=== PATIENT | male | born 1970 | race Caucasian/White ===

== ENCOUNTER 2018-01-09 10:59 | Emergency (ER) | payer SELFPAY ==
[~2018-01-09] VITALS: Ht 185.4 cm; Wt 117.9 kg
[~2018-01-09 10:59] MED LIST: CLIN-62 PO; CLIN150C17 PO; HYDR-757 PO; LACT1CAP62 PO; MUPI1OIN5 NS; OMEP-10 PO; PRX20T PO; RT-ALBUINH IH; [UNRECOGNIZED DRUG - REMARK]; [UNRECOGNIZED DRUG - REMARK]
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
--- OUTSIDE RECORDS SUMMARY | 2018-01-09 11:06 | XMS REPORT ---
Author Author ILYA CHENEY Organization [facility] Address [address] [place] [address] Care Team Providers Care Beam Press Operator Name Role Phone SHRAVAN ILYA Unavailable PROBLEMS Type Condition ICD9-CM Code NXI37-BI Code Onset Dates Condition Status SNOMED Code Problem Depression F32.9 Active 81327506 Problem CAD (coronary artery disease) I25.10 Active 51918268 Problem Cervical disc disease M50.90 Active 752216721 Problem Post concussion syndrome F07.81 Active 06844758 Problem Anxiety disorder, unspecified F41.9 Active 479864002 Problem Anxiety F41.9 Active 34785582 Problem History of [place] (myocardial infarction) I25.2 Active 693466876 Problem Drug abuse F19.10 Active 97259428 ALLERGIES No Information SOCIAL HISTORY Never Assessed PLAN OF CARE VITAL SIGNS MEDICATIONS Medication Instructions Dosage Frequency Start Date End Date Duration Status Lexapro 20 mg Orally Once a day 1 tablet 24h Dec, 30 days Active RESULTS No Results PROCEDURES No Known procedures IMMUNIZATIONS No Known Immunizations MEDICAL (GENERAL) HISTORY Type Description Date Medical [...]
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
--- OUTSIDE RECORDS SUMMARY | 2018-01-09 11:06 | XMS REPORT ---
Author JB Butcher Organization [employer] Address Unknown Phone Unavailable Care Team Providers Care Livestock Feeder Name Role Phone JB HUANG CP Unavailable Allergies, Adverse Reactions, Alerts Substance Reaction Event Type Sulfamethoxazole-Trimethoprim Info Not Available Drug Allergy Problems Problem Type Condition Code Onset Dates Condition Status Problem Anxiety disorder, unspecified F41.9 Active Problem Anxiety F41.9 Active Problem Depression F32.9 Active Assessment Foreign body in ear, right, initial encounter T16.1XXA Active Problem Drug abuse F19.10 Active Problem CAD (coronary artery disease) I25.10 Active Medications Medication Code System Code Instructions Start Date End Date Status Dosage Metoprolol Succinate NDC 0 50 by oral route Once a day 1 tablet Lexapro [place] [address]-36 20 mg Orally Once a day January 20, 2016 1 tablet Procedures Procedure Coding System Code Date Office Visit, Est Pt., Level 2 CPT-4 56266 Jul 26, 2016 FOREIGN BODY/EAR CPT-4 16300 Jul 26, 2016 Vital Signs Date/Time: Jul 26, 2016 Cardiac Monitoring Heart Rate 88 bpm Weight 251 lbs Height 73 in BMI 33.11 Index Blood Pressure Diastolic 88 mmHg Blood Pressure Systolic 124 mmHg Results Name Result Date Reference Range Unit Abnormality Flag FOREIGN BODY REMOVAL-EAR Summary Purpose eClinicalWorks Submission
--- OUTSIDE RECORDS SUMMARY | 2018-01-09 11:06 | XMS REPORT ---
Author Author LAUREN MONTELONGO Organization [facility] Address [address] [place] [address] Care Team Providers Care Aix Administrator Name Role Phone LAUREN MONTELONGO Unavailable PROBLEMS Type Condition ICD9-CM Code BIB10-MP Code Onset Dates Condition Status SNOMED Code Problem Depression F32.9 Active 59733636 Problem CAD (coronary artery disease) I25.10 Active 99700870 Problem Cervical disc disease M50.90 Active 978616341 Problem Post concussion syndrome F07.81 Active 27367951 Problem Anxiety disorder, unspecified F41.9 Active 393687892 Problem Anxiety F41.9 Active 66278412 Problem History of [place] (myocardial infarction) I25.2 Active 310451142 Problem Drug abuse F19.10 Active 00377462 ALLERGIES No Information SOCIAL HISTORY Never Assessed [...]
--- OUTSIDE RECORDS SUMMARY | 2018-01-09 11:07 | XMS REPORT ---
Author Author ILYA CHENEY Organization [facility] Address [address] [place] [address] Care Team Providers Care Watch Train Assembler Name Role Phone SHRAVAN ILYA Unavailable PROBLEMS Type Condition ICD9-CM Code KGE04-YD Code Onset Dates Condition Status SNOMED Code Problem Depression F32.9 Active 07518664 Problem CAD (coronary artery disease) I25.10 Active 60777636 Problem Cervical disc disease M50.90 Active 513043039 Problem Post concussion syndrome F07.81 Active 06963064 Problem Anxiety disorder, unspecified F41.9 Active 634386198 Problem Anxiety F41.9 Active 45816726 Problem History of [place] (myocardial infarction) I25.2 Active 136302766 Problem Drug abuse F19.10 Active 75024179 ALLERGIES No Information SOCIAL HISTORY Never Assessed [...]
--- OUTSIDE RECORDS SUMMARY | 2018-01-09 11:07 | XMS REPORT ---
Author Author ILYA CHENEY Organization [facility] Address [address] [place] [address] Care Team Providers Care Alarm Adjuster Name Role Phone ILYA CHENEY Unavailable PROBLEMS Type Condition ICD9-CM Code HMN95-AL Code Onset Dates Condition Status SNOMED Code Problem Depression F32.9 Active 40601111 Problem CAD (coronary artery disease) I25.10 Active 41815085 Problem Cervical disc disease M50.90 Active 530935892 Problem Post concussion syndrome F07.81 Active 42026909 Problem Anxiety disorder, unspecified F41.9 Active 347994830 Problem Anxiety F41.9 Active 73359226 Problem History of [place] (myocardial infarction) I25.2 Active 897349859 Problem Drug abuse F19.10 Active 50749247 ALLERGIES Unknown Allergies SOCIAL HISTORY No smoking Hx information available PLAN OF CARE VITAL SIGNS MEDICATIONS Medication Instructions Dosage Frequency Start Date End Date Duration Status Lexapro 20 mg Orally Once a day 1 tablet 24h Dec, 30 days Active RESULTS No Results PROCEDURES No Known procedures IMMUNIZATIONS No Known Immunizations
--- OUTSIDE RECORDS SUMMARY | 2018-01-09 11:07 | XMS REPORT ---
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
--- OUTSIDE RECORDS SUMMARY | 2018-01-09 11:07 | XMS REPORT ---
Author Author ILYA CHENEY [facility] Address [address] [place] [address] Care Team Providers Care Dye Machine Operator Name Role Phone NEVILLE CHENEYNETTE Unavailable PROBLEMS Type Condition ICD9-CM Code FDF74-XP Code Onset Dates Condition Status SNOMED Code Problem Depression F32.9 Active 19139634 Problem Anxiety disorder, unspecified F41.9 Active 608198686 Problem CAD (coronary artery disease) I25.10 Active 81439649 Assessment CAD (coronary artery disease) I25.10 May, Active 68368402 Problem Anxiety F41.9 Active 12448551 Problem Drug abuse F19.10 Active 79277507 ALLERGIES Substance Reaction Event Type Date Status Sulfamethoxazole-Trimethoprim Unknown Drug Allergy May, Active SOCIAL HISTORY No smoking Hx information available PLAN OF CARE VITAL SIGNS Height 73 in 2016-05-30 Weight 238.4 lbs 2016-05-30 Heart Rate 86 bpm 2016-05-30 Respiratory Rate 20 2016-05-30 BMI 31.45 kg/m2 2016-05-30 Blood pressure systolic 124 mmHg 2016-05-30 Blood pressure diastolic 78 mmHg 2016-05-30 MEDICATIONS Medication Instructions Dosage Frequency Start Date End Date Duration Status Lexapro 20 mg Orally Once a day 1 tablet 24h Dec, Active Metoprolol Succinate 50 by oral route Once a day 1 tablet 24h Active RESULTS No Results PROCEDURES Procedure Date Ordered Related Diagnosis Body Site Office Visit, Est Pt., Level 4 May 30, 2016 IMMUNIZATIONS No Known Immunizations
--- OUTSIDE RECORDS SUMMARY | 2018-01-09 11:07 | XMS REPORT ---
Author Author ILYA CHENEY Organization [facility] Address [address] [place] [address] Care Team Providers Care Graphic User Interface Designer Name Role Phone NEVILLE CHENEYNETTE Unavailable PROBLEMS Type Condition ICD9-CM Code GOH05-FC Code Onset Dates Condition Status SNOMED Code Problem Depression F32.9 Active 09394507 Problem CAD (coronary artery disease) I25.10 Active 44299929 Problem Cervical disc disease M50.90 Active 367416159 Problem Post concussion syndrome F07.81 Active 04807079 Problem Anxiety disorder, unspecified F41.9 Active 426108667 Problem Anxiety F41.9 Active 33135075 Problem History of [place] (myocardial infarction) I25.2 Active 582376721 Problem Drug abuse F19.10 Active 82628800 ALLERGIES Substance Reaction Event Type Date Status Sulfamethoxazole-Trimethoprim Unknown Drug Allergy Oct, Active SOCIAL HISTORY No smoking Hx information available PLAN OF CARE Activity Details Follow Up 3 Months, prn Reason: VITAL SIGNS Height 73 in 2016-10-31 Weight 259.0 lbs 2016-10-31 Temperature 98.0 degrees Fahrenheit 2016-10-31 Heart Rate 76 bpm 2016-10-31 Respiratory Rate 20 2016-10-31 BMI 34.17 kg/m2 2016-10-31 Blood pressure systolic 118 mmHg 2016-10-31 Blood pressure diastolic 70 mmHg 2016-10-31 MEDICATIONS Medication Instructions Dosage Frequency Start Date End Date Duration Status Lexapro 20 mg Orally Once a day 1 tablet 24h Dec, 30 days Active RESULTS No Results PROCEDURES Procedure Date Ordered Related Diagnosis Body Site Office Visit, Est Pt., Level 4 Oct 31, 2016 IMMUNIZATIONS No Known Immunizations
--- OUTSIDE RECORDS SUMMARY | 2018-01-09 11:07 | XMS REPORT ---
Author Author MARTIN GALVAN Organization [facility] Address [address] [place] [address] Care Team Providers Care Machine Farmworker Name Role Phone MARTIN GALVAN Unavailable PROBLEMS Type Condition ICD9-CM Code JIM51-WP Code Onset Dates Condition Status SNOMED Code Problem Depression F32.9 Active 86663518 Problem CAD (coronary artery disease) I25.10 Active 46447540 Problem Cervical disc disease M50.90 Active 703865559 Problem Post concussion syndrome F07.81 Active 82153866 Problem Anxiety disorder, unspecified F41.9 Active 050895434 Problem Anxiety F41.9 Active 95533555 Problem History of [place] (myocardial infarction) I25.2 Active 027881067 Problem Drug abuse F19.10 Active 53859629 ALLERGIES Substance Reaction Event Type Date Status Sulfamethoxazole-Trimethoprim Unknown Drug Allergy Sep, Active SOCIAL HISTORY No smoking Hx information available PLAN OF CARE Activity Details Follow Up prn Reason: VITAL SIGNS Height 73 in 2016-10-24 Weight 256.8 lbs 2016-10-24 Temperature 98.4 degrees Fahrenheit 2016-10-24 Heart Rate 80 bpm 2016-10-24 Respiratory Rate 18 2016-10-24 BMI 33.88 kg/m2 2016-10-24 Blood pressure systolic 126 mmHg 2016-10-24 Blood pressure diastolic 84 mmHg 2016-10-24 MEDICATIONS Medication Instructions Dosage Frequency Start Date End Date Duration Status Lexapro 20 mg Orally Once a day 1 tablet 24h Dec, 30 days Active RESULTS No Results PROCEDURES Procedure Date Ordered Related Diagnosis Body Site Office Visit, Est Pt., Level 3 Oct 24, 2016 IMMUNIZATIONS No Known Immunizations
--- OUTSIDE RECORDS SUMMARY | 2018-01-09 11:07 | XMS REPORT ---
Author Author SUYAPA COTO [facility] eClinicalWorks Address Unknown Phone Unavailable Care Team Providers Care Bed And Breakfast Innkeeper Name Role Phone SUYAPA COTO CP Unavailable Allergies, Adverse Reactions, Alerts Substance Reaction Event Type Sulfamethoxazole-Trimethoprim Info Not Available Drug Allergy Problems Problem Type Condition Code Onset Dates Condition Status Problem Anxiety disorder, unspecified F41.9 Active Problem Anxiety F41.9 Active Problem Depression F32.9 Active Assessment Rash and nonspecific skin eruption R21 Active Problem Drug abuse F19.10 Active Problem CAD (coronary artery disease) I25.10 Active Medications Medication Code System Code Instructions Start Date End Date Status Dosage Triamcinolone Acetonide [facility] [address]-34 0.1 % Externally Twice a day March 30, 2016 1 application to affected area PredniSONE [facility] [address]-46 20 mg Orally twice a day March 30, 2016 April 04, 2016 1 tablet Lexapro [facility] [address]-57 20 mg Orally Once a day January 20, 2016 1 tablet Keflex [facility] [address]-42 500 MG Orally 3 times a day March 30, 2016March 1 capsule Metoprolol Succinate NDC 0 not defined Procedures Procedure Coding System Code Date Office Visit, Est Pt., Level 3 CPT-4 43925 March 30, 2016 Vital Signs Date/Time: March 30, 2016 Cardiac Monitoring Heart Rate 90 bpm Weight 215.6 lbs Height 73 in Blood Pressure Diastolic 68 mmHg Blood Pressure Systolic 122 mmHg Results No Known Results Summary Purpose eClinicalWorks Submission
--- OUTSIDE RECORDS SUMMARY | 2018-01-09 11:08 | XMS REPORT ---
Author ILYA Merino [facility] eClinicalWorks Address Unknown Phone Unavailable Care Team Providers Care Desk Attendant Name Role Phone ILYA CHENEY Unavailable Allergies No Known Allergies Problems Problem Type Condition Code Onset Dates Condition Status Problem Anxiety disorder, unspecified F41.9 Active Problem Anxiety F41.9 Active Problem Depression F32.9 Active Problem Drug abuse F19.10 Active Problem CAD (coronary artery disease) I25.10 Active Medications Medication Code System Code Instructions Start Date End Date Status Dosage Vistaril [facility] [address]-18 50 mg Orally 3 times a day January 20, 2016 1 capsule as needed Lexapro [facility] [address]-83 20 mg Orally Once a day January 20, 2016 1 tablet Results No Known Results Summary Purpose eClinicalWorks Submission
--- OUTSIDE RECORDS SUMMARY | 2018-01-09 11:08 | XMS REPORT ---
Author Author LAUREN MONTELONGO Organization [facility] Address [address] [place] [address] Care Team Providers Care Dispensary Attendant Name Role Phone LAUREN MONTELONGO Unavailable PROBLEMS Type Condition ICD9-CM Code ZVF89-XE Code Onset Dates Condition Status SNOMED Code Problem Depression F32.9 Active 50138405 Problem CAD (coronary artery disease) I25.10 Active 41455222 Problem Cervical disc disease M50.90 Active 189364936 Problem Post concussion syndrome F07.81 Active 44712260 Problem Anxiety disorder, unspecified F41.9 Active 858649251 Problem Anxiety F41.9 Active 95941943 Problem History of OK (myocardial infarction) I25.2 Active 363070118 Problem Drug abuse F19.10 Active [id number] ALLERGIES No Information SOCIAL HISTORY Never Assessed PLAN OF CARE VITAL SIGNS MEDICATIONS Unknown Medications RESULTS Name Result Date Reference Range UA LONG DIP (IN HOUSE) 2016-12-08 Lot # [id number] Exp date 10/24/17 Clarity clear Color yellow Odor no GLU negative SARAH negative KET trace SG 1.025 BLO negative pH 6.5 Protein 2+ URO 0.2 NIT negative PATRICIO negative Lot # Exp date PROCEDURES Procedure Date Ordered Result Body Site URINALYSIS, AUTO, W/O SCOPE December 08, 2016 IMMUNIZATIONS No Known Immunizations MEDICAL (GENERAL) HISTORY [...]
--- OUTSIDE RECORDS SUMMARY | 2018-01-09 11:08 | XMS REPORT | Continuity of Care Document ---
Author Author [facility] Address Unknown Phone Unavailable Allergies Active Description Code Type Severity Reaction Onset Reported/Identified Relationship to Patient Clinical Status Yes SULFAMETHOXAZOLE-TRIMETHOPRIM SULFAMETHOXAZOLE-TRI SEVERE Yes [id number] (SULFA (SULFONAMIDE ANTIBIOTICS)) [id number] (SULFA (SULFONAMIDE ANTIBIOTICS)) Mild N/A 07/17/2009 Yes Sulfa (Sulfonamide Antibiotics) [id number] Drug Allergy Unknown N/A 2014 Medications Medication Packaging Start Date Stop Date Route Dosage Sig FENTANYL AMP INJ 100 MCG/2CC MCG 10/14/2016 ONCE&1334 FAMOTIDINE VIAL INJ 20 MG/2CC (PEPCID VIAL) MG 10/14/2016 10/14/2016 ONCE&1335 HYDROMORPHONE AMP INJ 2 MG/CC (DILAUDID 1CC AMP) MG 10/14/2016 10/14/2016 ONCE&1336 METOCLOPRAMIDE VIAL INJ 10 MG/2CC (REGLAN 2CC VIAL) MG 10/14/2016 10/14/2016 ONCE&1336 LACTATED RINGERS 1000CC IV BAG INJ 0 ml 10/14/2016 10/14/2016 ONCE&1340 CEFAZOLIN VIAL INJ 1 GM (ANCEF) GM 10/14/2016 10/14/2016 ONCE&1430 ONDANSETRON VIAL INJ 4 MG/2CC (ZOFRAN 2CC VIAL) MG 10/14/2016 10/21/2016 PRN Q4H OXYCODONE 5MG/APAP 325MG TAB 0 (PERCOCET-5) TAB 10/14/2016 10/21/2016 PRN Q4H IPRATROPIUM/ALBUTEROL INH SOLN INH 0 (DUO-NEB INH SOLN) MLS 10/14/2016 10/21/2016 PRN QID CEFAZOLIN VIAL INJ 1 GM (ANCEF) GM 10/14/2016 10/21/2016 Q8H&0600,1400,2200 PANTOPRAZOLE TAB 40 MG (PROTONIX) MG 10/15/2016 10/21/2016 Daily&0900 CITALOPRAM TAB 20 MG (CELEXA) MG 10/21/2016 Daily&0900 NICOTINE PATCH PAT 14 MG (NICODERM) MG 10/15/2016 10/21/2016 Daily&0900 HYDROMORPHONE AMP INJ 2 MG/CC (DILAUDID 1CC AMP) MG 10/15/2016 10/15/2016 ONCE&1530 CITALOPRAM TAB 20 MG (CELEXA) MG 10/15/2016 ONCE&0900 Problems Date Dx Coded Attending Type Code Diagnosis Diagnosed By 07/17/2009 GARETH MEEK APRN 016.51 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, BACTERIOLOGICAL OR HISTOLOGICAL EXAMINATION NOT DONE 07/17/2009 GARETH MEEK APRN 788.1 DYSURIA 07/17/2009 MARIE SANTIAGO DO 016.51 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, BACTERIOLOGICAL OR HISTOLOGICAL EXAMINATION NOT DONE 07/17/2009 MARIE SANTIAGO DO 788.1 DYSURIA 07/17/2009 DEMETRICE SHAIKH MD 016.51 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, BACTERIOLOGICAL OR HISTOLOGICAL EXAMINATION NOT DONE 07/17/2009 DEMETRICE SHAIKH MD 788.1 DYSURIA 07/17/2009 GARETH MEEK APRN 016.51 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, BACTERIOLOGICAL OR HISTOLOGICAL EXAMINATION NOT DONE 07/17/2009 GARETH MEEK APRN S 788.1 DYSURIA 12/03/2010 GARETH MEEK APRN S 601.0 ACUTE PROSTATITIS 12/03/2010 GARETH MEEK APRN S 788.63 URINARY URGENCY 12/03/2010 MARIE SANTIAGO DO K 601.0 ACUTE PROSTATITIS 12/03/2010 MARIE SANTIAGO DO 788.63 URINARY URGENCY 12/03/2010 DEMETRICE SHAIKH MD 601.0 ACUTE PROSTATITIS 12/03/2010 DEMETRICE SHAIKH MD 788.63 URINARY URGENCY 12/03/2010 GARETH MEEK APRN S 601.0 ACUTE PROSTATITIS 12/03/2010 FANTASMA EVENTS SPECIALIST, GARETH S 788.63 URINARY URGENCY 03/29/2011 DILIA MEEK APRNA S 783.5 POLYDIPSIA 03/29/2011 MARIE SANTIAGO DO 783.5 POLYDIPSIA 03/29/2011 DEMETRICE SHAIKH MD 783.5 POLYDIPSIA 03/29/2011 GARETH MEEK APRN S 783.5 POLYDIPSIA 02/07/2012 GARETH MEEK APRN S 919.5 INSECT BITE INFECTED 02/07/2012 MARIE SANTIAGO DO K 919.5 INSECT BITE INFECTED 02/07/2012 DEMETRICE SHAIKH MD 919.5 INSECT BITE INFECTED 02/07/2012 GARETH MEEK APRN S 919.5 INSECT BITE INFECTED 04/10/2012 GARETH MEEK APRN S V74.5 STD SCREEN 04/10/2012 MARIE SANTIAGO DO K V74.5 STD SCREEN 04/10/2012 DEMETRICE SHAIKH MD V74.5 STD SCREEN 04/10/2012 GARETH MEEK APRN S V74.5 STD SCREEN 06/26/2013 DILIA MEEK APRNA S 461.0 ACUTE MAXILLARY SINUSITIS 06/26/2013 MARIE SANTIAGO DO K 461.0 ACUTE MAXILLARY SINUSITIS 06/26/2013 DEMETRICE SHAIKH MD 461.0 ACUTE MAXILLARY SINUSITIS 06/26/2013 GARETH MEEK APRN S 461.0 ACUTE MAXILLARY SINUSITIS 08/05/2013 MARIE SANTIAGO DO K 300.00 AN ANXIETY UNSPEC 08/05/2013 DEMETRICE SHAIKH MD 300.00 AN ANXIETY UNSPEC 08/05/2013 GARETH MEEK APRN S 300.00 AN ANXIETY UNSPEC 09/04/2013 DEMETRICE SHAIKH MD 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 09/04/2013 GARETH MEEK APRN 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 09/06/2013 HARRIET EUCEDA APRN Ot 478.19 OTHER DISEASE OF NASAL CAVITY AND SINUSE 09/06/2013 HARRIET EUCEDA APRN Ot 682.3 CELLULITIS OF ARM 09/06/2013 HARRIET EUCEDA APRN Ot V04.81 ND FOR PROPHYLACTIC VACCIN AND INOCULATI 09/06/2013 HARRIET EUCEDA EVENTS SPECIALIST Ot V06.1 [id number], COMBINED [ 01/25/2014 BRI HINES, DANETTE Tiwari Ot 729.81 SWELLING OF LIMB 07/10/2014 HARRIET EUCEDA EVENTS SPECIALIST Ot 723.1 CERVICALGIA 07/10/2014 HARRIET EUCEDA EVENTS SPECIALIST Ot 723.4 BRACHIAL NEURITIS NOS 07/14/2014 FANTASMA EVENTS SPECIALIST, GARETH S 723.1 CERVICALGIA 07/14/2014 FANTASMA ROMERO, GARETH S 729.5 PAIN- ARM 01/22/2015 DEMETRICE SHAIKH MD Ot 305.1 TOBACCO USE DISORDER 01/22/2015 DEMETRICE SHAIKH MD Ot 305.70 AMPHETAMINE ABUSE-UNSPEC 01/22/2015 DEMETRICE SHAIKH MD Ot 426.3 LEFT BB BLOCK NEC 01/22/2015 DEMETRICE SHAIKH MD Ot 780.79 OTH MALAISE FATIGUE 01/22/2015 DEMETRICE SHAIKH MD Ot 966.3 POIS-ANTICONVUL NEC/NOS 01/22/2015 DEMETRICE SHAIKH MD Ot E950.4 SUICIDE-DRUG/MEDICIN NEC 03/05/2015 MAGY SAINI MD Ot 305.1 TOBACCO USE DISORDER 03/05/2015 MAGY SAINI MD Ot 401.9 HYPERTENSION NOS 03/05/2015 MAGY SAINI MD Ot 414.01 CORONARY ATHEROSCLEROSIS OF [place] CORON 03/05/2015 MAGY SAINI MD Ot 426.3 LEFT BB BLOCK NEC 03/05/2015 MAGY SAINI MD Ot 794.30 ABN CARDIOVASC STUDY NOS 03/05/2015 MAGY SAINI MD Ot V58.69 OTH MED,LT,CURRENT USE 09/27/2015 SELINA VANESSA Ot 305.1 09/27/2015 SELINA VANESSA Ot 426.3 09/27/2015 SELINA VANESSA Ot 786.09 09/27/2015 SELINA VANESSA Ot 786.50 09/27/2015 SELINA VANESSA Ot 305.1 09/27/2015 SELINA VANESSA Ot 426.3 09/27/2015 [facility], SELINA K Ot 786.09 09/27/2015 [facility], SELINA K Ot 786.50 09/27/2015 [facility], SELINA K Ot 305.1 09/27/2015 [facility], SELINA K Ot 426.3 09/27/2015 [facility], SELINA K Ot 786.09 09/27/2015 [facility], SELINA K Ot 786.50 09/27/2015 [facility], SELINA K Ot 305.1 09/27/2015 [facility], SELINA K Ot 426.3 09/27/2015 [facility], SELINA K Ot 786.09 09/27/2015 [facility], SELINA K Ot 786.50 09/28/2015 SANTIAGO DO, MARIE K Ot F10.10 09/28/2015 SANTIAGO DO, MARIE K Ot F15.90 09/28/2015 SANTIAGO DO, MARIE K Ot F17.210 09/28/2015 SANTIAGO DO, MARIE K Ot I10 09/28/2015 SANTIAGO DO, MARIE K Ot I25.10 09/28/2015 SANTIAGO DO, MARIE K Ot I44.7 09/28/2015 SANTIAGO DO, MARIE K Ot I49.3 09/28/2015 SANTIAGO DO, MARIE K Ot M62.82 09/28/2015 SANTIAGO DO, MARIE K Ot R07.9 09/28/2015 SANTIAGO DO, MARIE K Ot F10.10 09/28/2015 SANTIAGO DO, MARIE K Ot F15.90 09/28/2015 SANTIAGO DO, MARIE K Ot F17.210 09/28/2015 SANTIAGO DO, MARIE K Ot I10 09/28/2015 SANTIAGO DO, MARIE K Ot I25.10 09/28/2015 SANTIAGO DO, MARIE K Ot I44.7 09/28/2015 SANTIAGO DO, MARIE K Ot I49.3 09/28/2015 SANTIAGO DO, MARIE K Ot M62.82 09/28/2015 SANTIAGO DO, MARIE K Ot R07.9 09/29/2015 SANTIAGO DO, MARIE K Ot F10.10 09/29/2015 SANTIAGO DO, MARIE K Ot F15.90 09/29/2015 SANTIAGO DO, MARIE K Ot F17.210 09/29/2015 SANTIAGO DO, MARIE K Ot I10 09/29/2015 SANTIAGO DO, MARIE K Ot I25.10 09/29/2015 SANTIAGO DO, MARIE K Ot I44.7 09/29/2015 SANTIAGO DO, MARIE K Ot I49.3 09/29/2015 SANTIAGO DO, MARIE K Ot M62.82 09/29/2015 SANTIAGO DO, MARIE K Ot R07.9 09/29/2015 SANTIAGO DO, MARIE K Ot F10.10 09/29/2015 SANTIAGO DO, MARIE K Ot F15.90 09/29/2015 SANTIAGO DO, MARIE K Ot F17.210 09/29/2015 SANTIAGO DO, MARIE K Ot I10 09/29/2015 SANTIAGO DO, MARIE K Ot I25.10 09/29/2015 SANTIAGO DO, MARIE K Ot I44.7 09/29/2015 SANTIAGO DO, MARIE K Ot I49.3 09/29/2015 SANTIAGO DO, MARIE K Ot M62.82 09/29/2015 SANTIAGO DO, MARIE K Ot R07.9 09/29/2015 SANTIAGO DO, MARIE K Ot F10.10 09/29/2015 SANTIAGO DO, MARIE K Ot F10.20 ALCOHOL DEPENDENCE, UNCOMPLICATED 09/29/2015 SANTIAGO DO, MARIE K Ot F12.90 CANNABIS USE, UNSPECIFIED, UNCOMPLICATED 09/29/2015 SANTIAGO DO, MARIE K Ot 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 09/29/2015 SANTIAGO DO, MARIE K Ot F15.90 09/29/2015 SANTIAGO DO, MARIE K Ot F17.210 NICOTINE DEPENDENCE, CIGARETTES, UNCOMPL 09/29/2015 SANTIAGO DO, MARIE K Ot I10 ESSENTIAL (PRIMARY) HYPERTENSION 09/29/2015 SANTIAGO DO, MARIE K Ot I25.10 ATHSCL HEART DISEASE OF [place] CORONARY 09/29/2015 SANTIAGO DO, MARIE K Ot I44.7 LEFT BUNDLE-BRANCH BLOCK, UNSPECIFIED 09/29/2015 SANTIAGO DO, MARIE K Ot I49.3 VENTRICULAR PREMATURE DEPOLARIZATION 09/29/2015 SANTIAGO DO, MARIE K Ot M62.82 RHABDOMYOLYSIS 09/29/2015 SANTIAGO DO, MARIE K Ot R07.9 CHEST PAIN, UNSPECIFIED 09/29/2015 SANTIAGO MARIE HUBBARD Ot Z53.21 PROC/TRTMT NOT CRD OUT D/T PT LV BEF SEE 10/01/2015 CÉSAR HERNÁNDEZ, MAHESH Husain Ot E86.0 DEHYDRATION 10/01/2015 MAHESH LINDSEY MD Ot F12.10 CANNABIS ABUSE, UNCOMPLICATED 10/01/2015 MAHESH LINDSEY MD Ot F15.10 OTHER STIMULANT ABUSE, UNCOMPLICATED 10/01/2015 CÉSAR HERNÁNDEZ, MAHESH Husain Ot F17.210 NICOTINE DEPENDENCE, CIGARETTES, UNCOMPL 10/01/2015 SELINA VANESSA Ot 305.1 10/01/2015 SELINA VANESSA Ot 426.3 10/01/2015 SELINA VANESSA Ot 786.09 10/01/2015 SELINA VANESSA Ot 786.50 10/01/2015 SELINA VANESSA Ot 305.1 10/01/2015 SELINA VANESSA Ot 426.3 10/01/2015 SELINA VANESSA Ot 786.09 10/01/2015 SELINA VANESSA Ot 786.50 06/04/2016 SELINA VANESSA Ot 305.1 TOBACCO USE DISORDER 06/04/2016 SELINA VANESSA Ot 426.3 LEFT BB BLOCK NEC 06/04/2016 SELINA VANESSA Ot 786.09 RESPIRATORY ABNORM NEC 06/04/2016 SELINA VANESSA Ot 786.50 CHEST PAIN NOS 06/04/2016 SELINA VANESSA Ot 305.1 TOBACCO USE DISORDER 06/04/2016 SELINA VANESSA Ot 426.3 LEFT BB BLOCK NEC 06/04/2016 SELINA VANESSA Ot 786.09 RESPIRATORY ABNORM NEC 06/04/2016 SELINA VANESSA Ot 786.50 CHEST PAIN NOS 06/04/2016 SELINA VANESSA Ot 305.1 TOBACCO USE DISORDER 06/04/2016 SELINA VANESSA Ot 426.3 LEFT BB BLOCK NEC 06/04/2016 ESTEPHANIE HINES SELINA K Ot 786.09 RESPIRATORY ABNORM NEC 06/04/2016 ESTEPHANIE HINES SELINA K Ot 786.50 CHEST PAIN NOS 06/04/2016 ESTEPHANIE HINES, SELINA K Ot 305.1 TOBACCO USE DISORDER 06/04/2016 ESTEPHANIE HINES SELINA K Ot 426.3 LEFT BB BLOCK NEC 06/04/2016 ESTEPHANIE HINES SELINA K Ot 786.09 RESPIRATORY ABNORM NEC 06/04/2016 ESTEPHANIE HINES SELINA K Ot 786.50 CHEST PAIN NOS 06/06/2016 COREY HERNÁNDEZ, JE Fuentes Ot F17.210 NICOTINE DEPENDENCE, CIGARETTES, UNCOMPL 06/06/2016 COREY HERNÁNDEZ, JE Fuentes Ot I10 ESSENTIAL (PRIMARY) HYPERTENSION 06/06/2016 COREY HERNÁNDEZ, JE T Ot L03.116 CELLULITIS OF LEFT LOWER LIMB 06/06/2016 COREY HERNÁNDEZ, JE T Ot R06.2 WHEEZING 06/06/2016 COREY HERNÁNDEZ, JE Fuentes Ot R07.89 OTHER CHEST PAIN 06/06/2016 COREY HERNÁNDEZ, JE Fuentes Ot Z79.899 OTHER SENIOR LIVING (CURRENT) DRUG THERAPY 10/15/2016 Drew Lindsay 881.00 OPEN WOUND OF FOREARM, WITHOUT MENTION OF COMPLICATION 10/15/2016 Drew Lindsay S51.811A LACERATION WITHOUT FOREIGN BODY OF RIGHT FOREARM, INITIAL ENCOUNTER 10/15/2016 Drew Lindsay S51.812A LACERATION WITHOUT FOREIGN BODY OF LEFT FOREARM, INIT ENCNTR 10/15/2016 Drew Lindsay 427.9 CARDIAC DYSRHYTHMIA, UNSPECIFIED 10/15/2016 Drew Lindsay 873.42 10/15/2016 Drew Lindsay 924.10 10/15/2016 Drew Lindsay 997.1 CARDIAC COMPLICATIONS, NOT ELSEWHERE CLASSIFIED 10/15/2016 Drew Lindsay I49.9 CARDIAC ARRHYTHMIA, UNSPECIFIED 10/15/2016 Drew Lindsay I97.791 OTH INTRAOP CARDIAC FUNCTIONAL DISTURB DURING OTH SURGERY 10/15/2016 Drew Lindsay S01.81XA LACERATION W/O FOREIGN BODY OF OTH PART OF HEAD, INIT ENCNTR 10/15/2016 Drew Lindsay S80.12XA CONTUSION OF LEFT LOWER LEG, INITIAL ENCOUNTER 10/15/2016 Drew Lindsay V05.9 NEED FOR PROPHYLACTIC VACCINATION AND INOCULATION AGAINST UNSPECIFIED SINGLE DISEASE 10/15/2016 Drew Lindsay Z23 ENCOUNTER FOR IMMUNIZATION 10/19/2016 Manisha Santamaria V58.32 ENCOUNTER FOR REMOVAL OF SUTURES 10/19/2016 Manisha Santamaria Z48.02 ENCOUNTER FOR REMOVAL OF SUTURES 10/22/2016 KAROLINE MONDRAGON V58.32 ENCOUNTER FOR REMOVAL OF SUTURES 10/22/2016 KAROLINE MONDRAGON Z48.02 ENCOUNTER FOR REMOVAL OF SUTURES Procedures Code [place] [address] URINE DRUG SCREEN (IN-HOUSE ) 08/05/2013 94528 XRAY CERVICAL SPINE, 2 OR 3 VIEWS 07/14/2014 65008 MRI SPINE (CERVICAL) W/O CONTRAST 07/14/2014 Results Test Result Range Complete blood count (CBC) with automated white blood cell (WBC) differential - 06/04/16 19:58 Blood leukocytes automated count (number/volume) 9.8 10*3/uL 4.3-11.0 Blood erythrocytes automated count (number/volume) 4.95 10*6/uL 4.35-5.85 Venous blood hemoglobin measurement (mass/volume) 16.2 g/dL 13.3-17.7 Blood hematocrit (volume fraction) 45 % 40-54 Automated erythrocyte mean corpuscular volume 90 [foz_us] 80-99 Automated erythrocyte mean corpuscular hemoglobin (mass per erythrocyte) 33 pg 25-34 Automated erythrocyte mean corpuscular hemoglobin concentration measurement ( mass/volume) 36 g/dL 32-36 Automated erythrocyte distribution width ratio 12.8 % 10.0-14.5 Automated blood platelet count (count/volume) 279 10*3/uL 130-400 Automated blood platelet mean volume measurement 9.7 [foz_us] 7.4-10.4 Automated blood neutrophils/100 leukocytes 56 % 42-75 Automated blood lymphocytes/100 leukocytes 27 % 12-44 Blood monocytes/100 leukocytes 14 % 0-12 Automated blood eosinophils/100 leukocytes 3 % 0-10 Automated blood basophils/100 leukocytes 1 % 0-10 Blood neutrophils automated count (number/volume) 5.4 10*3 1.8-7.8 Blood lymphocytes automated count (number/volume) 2.7 10*3 1.0-4.0 Blood monocytes automated count (number/volume) 1.4 10*3 0.0-1.0 Automated eosinophil count 0.3 10*3/uL 0.0-0.3 Automated blood basophil count (count/volume) 0.1 10*3/uL 0.0-0.1 PT panel in platelet poor plasma by coagulation assay - 06/04/16 19:58 Prothrombin time (PT) in platelet poor plasma by coagulation assay 12.7 s 12.2-14.7 INR in platelet poor plasma or blood by coagulation assay 1.0 0.8-1.4 Activated partial thromboplastin time (aPTT) in platelet poor plasma bycoagulation assay - 06/04/16 19:58 Activated partial thromboplastin time (aPTT) in platelet poor plasma bycoagulation assay 31 s 24-35 Comprehensive metabolic panel - 06/04/16 19:58 Serum or plasma sodium measurement (moles/volume) 141 mmol/L 135-145 Serum or plasma potassium measurement (moles/volume) 4.0 mmol/L 3.6-5.0 Serum or plasma chloride measurement (moles/volume) 105 mmol/L 98-107 Carbon dioxide 23 mmol/L 21-32 Serum or plasma anion gap determination (moles/volume) 13 mmol/L 5-14 Serum or plasma urea nitrogen measurement (mass/volume) 10 mg/dL 7-18 Serum or plasma creatinine measurement (mass/volume) 1.05 mg/dL 0.60-1.30 Serum or plasma urea nitrogen/creatinine mass ratio 10 NRG Serum or plasma creatinine measurement with calculation of estimated glomerular filtration rate > NRG Serum or plasma glucose measurement (mass/volume) 96 mg/dL 70-105 Serum or plasma calcium measurement (mass/volume) 9.7 mg/dL 8.5-10.1 Serum or plasma total bilirubin measurement (mass/volume) 0.3 mg/dL 0.1-1.0 Serum or plasma alkaline phosphatase measurement (enzymatic activity/volume) 71 U/L 40-136 Serum or plasma aspartate aminotransferase measurement (enzymatic activity/ volume) 30 U/L 5-34 Serum or plasma alanine aminotransferase measurement (enzymatic activity/volume ) 28 U/L 0-55 Serum or plasma protein measurement (mass/volume) 7.5 g/dL 6.4-8.2 Serum or plasma albumin measurement (mass/volume) 4.5 g/dL 3.2-4.5 Magnesium - 06/04/16 19:58 Magnesium 2.5 mg/dL 1.8-2.4 Serum or plasma troponin i.cardiac measurement (mass/volume) - 06/04/16 19:58 Serum or plasma troponin i.cardiac measurement (mass/volume) < ng/ mL <0.30 Myoglobin, serum - 06/04/16 19:58 Myoglobin, serum 51.5 ng/mL 10.0-92.0 Serum or plasma C reactive protein measurement (mass/volume) - 06/04/16 19:58 Serum or plasma C reactive protein measurement (mass/volume) 0.40 mg /dL 0.00-0.50 Fibrin D-dimer FEU measurement in platelet poor plasma (mass/volume) - 19:58 Fibrin D-dimer FEU measurement in platelet poor plasma (mass/volume) 0.35 ug/mL 0.00-0.49 Comprehensive Metabolic Panel - 10/14/16 12:39 Albumin 4.6 g/dL 3.6-5.1 ALP 50 U/L 35-130 ALT 46 U/L 6-45 Anion Gap 16 6-14 AST 38 U/L 2-40 BUN 9 mg/dL 5-25 Calcium 9.5 mg/dL 8.3-10.4 Chloride 107 mmol/L 95-114 CO2 22 mEq/L 22-33 Creat 0.98 mg/dL 0.50-1.50 eGFR 82 mL/min/1.73m2 >59 Globulin 3.6 g/dL 2.3-3.5 Glucose 122 mg/dL 70-110 Osmo 291 280-295 Potassium 3.6 mmol/L 3.5-5.3 Sodium 141 mmol/L 134-148 TBil 0.5 mg/dL 0.2-1.2 TP 8.2 g/dL 6.0-8.3 EKG - 10/14/16 13:43 EKG Complete Cardiac Panel - 10/14/16 15:24 CK 267 U/L 26-174 CK-MB 2.6 ng/ml 0.0-9.2 Myoglobin 97.4 ng/ml 1.6-154.9 Troponin <0.020 ng/mL 0.0-0.4 Cardiac Panel - 10/14/16 18:30 CK 296 U/L 26-174 CK-MB 3.1 ng/ml 0.0-9.2 Myoglobin 94.9 ng/ml 1.6-154.9 Troponin <0.020 ng/mL 0.0-0.4 Cardiac Panel - 10/14/16 21:30 CK 307 U/L 26-174 CK-MB 3.3 ng/ml 0.0-9.2 Myoglobin 86.5 ng/ml 1.6-154.9 Troponin <0.020 ng/mL 0.0-0.4 Cardiac Panel - 10/15/16 03:30 CK 317 U/L 26-174 CK-MB 2.5 ng/ml 0.0-9.2 Myoglobin 70.9 ng/ml 1.6-154.9 Troponin <0.020 ng/mL 0.0-0.4 CBC With Differential/Platelet - 10/17/16 11:45 WBC 8.0 x10E3/uL 3.4-10.8 RBC 5.17 x10E6/uL 4.14-5.80 Hemoglobin 16.5 g/dL 12.6-17.7 Hematocrit 46.3 % 37.5-51.0 MCV 90 fL 79-97 MCH 31.9 pg 26.6-33.0 MCHC 35.6 g/dL 31.5-35.7 RDW 13.4 % 12.3-15.4 Platelets 293 x10E3/uL 150-379 Neutrophils 58 % Lymphs 26 % Monocytes 11 % Eos 3 % Basos 1 % Neutrophils (Absolute) 4.8 x10E3/uL 1.4-7.0 Lymphs (Absolute) 2.0 x10E3/uL 0.7-3.1 Monocytes(Absolute) 0.8 x10E3/uL 0.1-0.9 Eos (Absolute) 0.2 x10E3/uL 0.0-0.4 Baso (Absolute) 0.1 x10E3/uL 0.0-0.2 Immature Granulocytes 1 % Immature Grans (Abs) 0.1 x10E3/uL 0.0-0.1 Comp. Metabolic Panel (14) - 10/17/16 11:45 Glucose, Serum 116 mg/dL 65-99 BUN 8 mg/dL 6-24 Creatinine, Serum 0.79 mg/dL 0.76-1.27 eGFR If NonAfricn Am 107 mL/min/1.73 >59 eGFR If Africn Am 124 mL/min/1.73 >59 BUN/Creatinine Ratio 10 9-20 Sodium, Serum 143 mmol/L 134-144 Potassium, Serum 4.6 mmol/L 3.5-5.2 Chloride, Serum 98 mmol/L 96-106 Carbon Dioxide, Total 27 mmol/L 18-29 Calcium, Serum 9.8 mg/dL 8.7-10.2 Protein, Total, Serum 7.3 g/dL 6.0-8.5 Albumin, Serum 4.7 g/dL 3.5-5.5 Globulin, Total 2.6 g/dL 1.5-4.5 A/G Ratio 1.8 1.1-2.5 Bilirubin, Total 0.4 mg/dL 0.0-1.2 Alkaline Phosphatase, S 79 IU/L 39-117 AST (SGOT) 31 IU/L 0-40 ALT (SGPT) 36 IU/L 0-44 Lipid Panel - 10/17/16 11:45 Cholesterol, Total 166 mg/dL 100-199 Triglycerides 226 mg/dL 0-149 HDL Cholesterol 45 mg/dL >39 VLDL Cholesterol Griffin 45 mg/dL 5-40 LDL Cholesterol Calc 76 mg/dL 0-99 Hemoglobin A1c - 10/17/16 11:45 Hemoglobin A1c 5.5 % 4.8-5.6 Thyroid [place] Profile - 10/17/16 11:45 TSH 0.539 uIU/mL 0.450-4.500 Encounters ACCT No. Visit Date/Time Discharge Status Pt. Type Provider Facility Loc./Unit Complaint [id number] 07/14/2014 15:03:00 07/14/2014 23:59:59 CLS Outpatient GARETH MEEK APRN [id number] 09/04/2013 15:43:00 09/04/2013 23:59:59 CLS Outpatient NEEL HERNÁNDEZ, DEMETRICE [id number] 08/05/2013 10:08:00 08/05/2013 23:59:59 CLS Outpatient MARIE SANTIAGO DO [id number] 06/26/2013 10:47:00 06/26/2013 23:59:59 CLS Outpatient GARETH MEEK APRN [id number] 10/22/2016 12:18:00 10/22/2016 12:33:00 DIS Outpatient VAMSIEVANKAROLINE SIMEON [id number] 10/19/2016 12:39:00 10/19/2016 12:59:00 DIS Outpatient Manisha Santamaria [id number] 10/14/2016 12:24:00 10/15/2016 16:00:00 [id number] 10/14/2016 13:34:36 Document Registration [id number] 12/31/2017 14:20:00 12/31/2017 23:59:59 CLS Outpatient ILYA [facility]ENE[facility] [id number] 06/04/2016 19:48:00 06/04/2016 22:19:00 DIS Outpatient COREY HERNÁNDEZ, JE Fuentes [facility] ER CHEST PAIN [id number] 10/01/2015 17:06:00 10/01/2015 19:21:00 DIS Emergency CÉSAR HERNÁNDEZ, MAHESH Husain [facility] ER CONFUSION,DROWSINESS [id number] 09/26/2015 23:28:00 09/29/2015 10:36:00 DIS Inpatient MARIE SANTIAGO DO [facility] 4TH [id number] 07/05/2015 14:37:00 07/05/2015 23:59:59 CLS Outpatient TIN CHAVEZ [facility] QUICK [id number] 03/05/2015 09:59:00 03/05/2015 17:55:00 DIS Outpatient PARVEEN HERNÁNDEZ, MAGY Moreno [facility] CATH ABNORMAL STRESS, CP,SOB, LBBB,TOBACCOISM [id number] 03/03/2015 08:42:00 03/03/2015 23:59:59 CLS Outpatient SELINA VANESSA [facility] CARD CHEST PAIN DYSPNEA LBBB [id number] 02/24/2015 12:29:00 02/24/2015 23:59:59 CLS Outpatient SELINA VANESSA [facility] CARD LBBB,CP, DYSPNEA [id number] 01/22/2015 00:02:00 01/22/2015 12:00:00 DIS Inpatient NEEL HERNÁNDEZ, DEMETRICE Jones [facility] ICU DRUG OD;SUICIDAL IDEATION /ATTEMPT [id number] 07/10/2014 17:34:00 07/10/2014 18:16:00 DIS Emergency HARRIET EUCEDA APRN [facility] ER NECK PAIN ARM PAIN [id number] 01/25/2014 17:14:00 01/25/2014 20:10:00 DIS Emergency DANETTE RUIZ [facility] ER FINGER INFECTION [id number] 09/06/2013 09:10:00 09/06/2013 11:05:00 DIS Emergency HARRIET EUCEDA APRN [facility] ER [id number] 10/18/2016 18:06:00 Document Registration [id number] 07/05/2015 15:24:10 ACT Document Registration
--- OUTSIDE RECORDS SUMMARY | 2018-01-09 11:08 | XMS REPORT ---
Author Author ILYA CHENEY Organization [facility] Address [address] [place] [address] Care Team Providers Care Duct Cleaner Name Role Phone NEVILLE CHENEYNETTE Unavailable PROBLEMS Type Condition ICD9-CM Code LTG26-IP Code Onset Dates Condition Status SNOMED Code Problem Depression F32.9 Active 37765399 Problem CAD (coronary artery disease) I25.10 Active 20346307 Problem Cervical disc disease M50.90 Active 882975484 Problem Post concussion syndrome F07.81 Active 26358750 Problem Anxiety disorder, unspecified F41.9 Active 995839897 Problem Anxiety F41.9 Active 73907588 Problem History of SC (myocardial infarction) I25.2 Active 999537514 Problem Drug abuse F19.10 Active 33617902 ALLERGIES Substance Reaction Event Type Date Status Sulfamethoxazole-Trimethoprim Unknown Drug Allergy Feb, Active SOCIAL HISTORY Never Assessed PLAN OF CARE Activity Details Follow Up 4 Weeks Reason:smoking cessation VITAL SIGNS Height 73 in 2017-02-26 Weight 250.1 lbs 2017-02-26 Temperature 98.6 degrees Fahrenheit 2017-02-26 Heart Rate 80 bpm 2017-02-26 Respiratory Rate 18 2017-02-26 BMI 32.99 kg/m2 2017-02-26 Blood pressure systolic 130 mmHg 2017-02-26 Blood pressure diastolic 72 mmHg 2017-02-26 MEDICATIONS Medication Instructions Dosage Frequency Start Date End Date Duration Status Chantix Starting Month Jayesh 1 bed Orally Once a day one daily for 11 days then bid 24h Feb, Active Lexapro 20 mg Orally Once a day 1 tablet 24h Dec, 30 days Active Simvastatin 40 mg Orally Once a day 1 tablet in the evening 24h Dec, 90 days Active RESULTS No Results PROCEDURES No [...]
--- OUTSIDE RECORDS SUMMARY | 2018-01-09 11:08 | XMS REPORT ---
Author Author LAUREN MONTELONGO [facility] Address [address] [place] [address] Care Team Providers Care Associate Professor Of History Name Role Phone LAUREN MONTELONGO Unavailable PROBLEMS Type Condition ICD9-CM Code SXM30-AC Code Onset Dates Condition Status SNOMED Code Problem Depression F32.9 Active 40759592 Problem CAD (coronary artery disease) I25.10 Active 44118961 Problem Cervical disc disease M50.90 Active 443925178 Problem Post concussion syndrome F07.81 Active 79226453 Problem Anxiety disorder, unspecified F41.9 Active 544841848 Problem Anxiety F41.9 Active 97386170 Problem History of AK (myocardial infarction) I25.2 Active 210244922 Problem Drug abuse F19.10 Active 90147557 ALLERGIES Substance Reaction Event Type Date Status Sulfamethoxazole-Trimethoprim Unknown Drug Allergy Sep, Active SOCIAL HISTORY Never Assessed PLAN OF CARE Activity Details Follow Up prn with PCP Alvin Reason: VITAL SIGNS Height 73 in 2016-10-17 Weight 250.0 lbs 2016-10-17 Temperature 98.7 degrees Fahrenheit 2016-10-17 Heart Rate 82 bpm 2016-10-17 Respiratory Rate 22 2016-10-17 BMI 32.98 kg/m2 2016-10-17 Blood pressure systolic 120 mmHg 2016-10-17 Blood pressure diastolic 80 mmHg 2016-10-17 MEDICATIONS Medication Instructions Dosage Frequency Start Date End Date Duration Status Lexapro 20 mg Orally Once a day 1 tablet 24h Dec, Active RESULTS Name Result Date Reference Range THYROID ANALYZER 2016-10-17 TSH 0.539 0.450-4.500 A1C 2016-10-17 Hemoglobin A1c 5.5 4.8-5.6 CBC 2016-10-17 WBC 8.0 3.4-10.8 RBC 5.17 4.14-5.80 Hemoglobin 16.5 12.6-17.7 Hematocrit 46.3 37.5-51.0 MCV 90 79-97 MCH 31.9 26.6-33.0 MCHC 35.6 31.5-35.7 RDW 13.4 12.3-15.4 Platelets 293 150-379 Neutrophils 58 Lymphs 26 Monocytes 11 Eos 3 Basos 1 Neutrophils (Absolute) 4.8 1.4-7.0 Lymphs (Absolute) 2.0 0.7-3.1 Monocytes(Absolute) 0.8 0.1-0.9 Eos (Absolute) 0.2 0.0-0.4 Baso (Absolute) 0.1 0.0-0.2 Immature Granulocytes 1 Immature Grans (Abs) 0.1 0.0-0.1 LIPID PANEL 2016-10-17 Cholesterol, Total 166 100-199 Triglycerides 226 0-149 HDL Cholesterol 45 >39 VLDL Cholesterol Griffin 45 5-40 LDL Cholesterol Calc 76 0-99 CMP 2016-10-17 Glucose, Serum 116 65-99 BUN 8 6-24 Creatinine, Serum 0.79 0.76-1.27 eGFR If NonAfricn Am 107 >59 eGFR If Africn Am 124 >59 BUN/Creatinine Ratio 10 9-20 Sodium, Serum 143 134-144 Potassium, Serum 4.6 3.5-5.2 Chloride, Serum 98 96-106 Carbon Dioxide, Total 27 18-29 Calcium, Serum 9.8 8.7-10.2 Protein, Total, Serum 7.3 6.0-8.5 Albumin, Serum 4.7 3.5-5.5 Globulin, Total 2.6 1.5-4.5 A/G Ratio 1.8 1.1-2.5 Bilirubin, Total 0.4 0.0-1.2 Alkaline Phosphatase, S 79 39-117 AST (SGOT) 31 0-40 ALT (SGPT) 36 0-44 PROCEDURES Procedure Date Ordered Result Body Site EKG, TRACING (IN-HOUSE) 2016-10-17 Normal VENIPUNCT, ROUTINE* Oct 17, 2016 ASSAY THYROID STIM HORMONE Oct 17, 2016 ELECTROCARDIOGRAM, TRACING Oct 17, 2016 COMPLETE CBC W/AUTO DIFF WBC Oct 17, 2016 COMPREHEN METABOLIC PANEL Oct 17, 2016 LIPID PANEL Oct 17, 2016 GLYCATED HEMOGLOBIN TEST Oct 17, 2016 IMMUNIZATIONS No Known Immunizations MEDICAL (GENERAL) [...]
--- NOTE | 2018-01-09 11:10 | ED Headache ---
General Stated Complaint: BLURRY,DOUBLE VISION,MENARD Source: patient Exam Limitations: no limitations History of Present Illness Date Seen by Provider: Jan 09, 2018 Time Seen by Provider: 11:09 Initial Comments To ER with reports of a one-week history frontal headache both sides. He's had blurred vision for 2 days. He's also been very shaky. He denies feeling anxious. No nausea vomiting. No fevers or chills. No history of this or headaches. Otherwise believes his healthy. Severity/Quality: moderate Location: frontal Prior Headaches/Recent Trauma: occasional headaches Associated Symptoms: No confusion, No fatigue, No facial pain, No fever/chills , No flushing, No loss of consciousness, No nausea/vomiting, No nasal congestion , No nasal drainage, No numbness in legs/feet, No rash Allergies and Home Medications Allergies Coded Allergies: Sulfa (Sulfonamide Antibiotics) (Unverified Allergy, Unknown, 03/03/15) Patient Home Medication List Home Medication List Reviewed: Yes Review of Systems Constitutional: see HPI Eyes: See HPI, Blurred Vision Ears, Nose, Mouth, Throat: no symptoms reported Respiratory: no symptoms reported Cardiovascular: no symptoms reported Genitourinary: no symptoms reported Musculoskeletal: no symptoms reported Skin: no symptoms reported Psychiatric/Neurological: No Symptoms Reported Past Itclnep-Ybgabb-Mxcvwi Hx Patient Social History Type Used: Cigarettes Recent Foreign Travel: No Contact w/Someone Who Travel: No Recent Hopitalizations: No Immunizations Up To Date Tetanus Booster (TDap): Less than 5yrs Date of Influenza Vaccine: Jun 24, 2013 Seasonal Allergies Seasonal Allergies: No Past Medical History Appendectomy, Orthopedic Coronary Artery Disease, Hypertension Reproductive Disorders: No Kidney Stones Gastroesophageal Reflux Anxiety, Suicide Attempts, Depression Family Medical History Diabetes mellitus 19 FATHER 19 MOTHER FH: lung cancer 19 MOTHER Hypertension 19 FATHER 19 MOTHER Myocardial infarction 19 FATHER No Family History of: Completed stroke Seizure disorder Heart Disease, Diabetes Physical Exam Vital Signs Vital Signs - First Documented 01/09/18 11:00 Temp 98.0 Pulse 77 Resp 18 B/P (MAP) 143/93 (110) Pulse Ox 98 O2 Delivery Room Air Capillary Refill : General Appearance: WD/WN, no apparent distress HEENT: PERRL/EOMI, normal ENT inspection Neck: non-tender, full range of motion Respiratory: no respiratory distress, no accessory muscle use Gastrointestinal: normal bowel sounds, non tender Extremities: normal range of motion, non-tender Psychiatric: alert, oriented x 3 Crainal Nerves: normal hearing, normal speech, PERRL Motor/Sensory: other (tremors bilateral upper extremities. ) Skin: normal color, warm/dry Progress/Results/Core Measures Lab Results Laboratory Tests Test 01/09/18 11:16 01/09/18 11:50 Range/Units White Blood Count 7.9 4.3-11.0 10^3/uL Red Blood Count 4.93 4.35-5.85 10^6/uL Hemoglobin 15.9 13.3-17.7 G/DL Hematocrit 44 40-54 % Mean Corpuscular Volume 89 80-99 FL Mean Corpuscular Hemoglobin 32 25-34 PG Mean Corpuscular Hemoglobin Concent 36 32-36 G/DL Red Cell Distribution Width 13.1 10.0-14.5 % Platelet Count 344 130-400 10^3/uL Mean Platelet Volume 9.3 7.4-10.4 FL Neutrophils (%) (Auto) 61 42-75 % Lymphocytes (%) (Auto) 22 12-44 % Monocytes (%) (Auto) 13 H 0-12 % Eosinophils (%) (Auto) 3 0-10 % Basophils (%) (Auto) 1 0-10 % Neutrophils # (Auto) 4.8 1.8-7.8 X 10^3 Lymphocytes # (Auto) 1.8 1.0-4.0 X 10^3 Monocytes # (Auto) 1.1 H 0.0-1.0 X 10^3 Eosinophils # (Auto) 0.2 0.0-0.3 10^3/uL Basophils # (Auto) 0.1 0.0-0.1 10^3/uL Erythrocyte Sedimentation Rate 7 0-15 MM/HR Sodium Level 140 135-145 MMOL/L Potassium Level 4.2 3.6-5.0 MMOL/L Chloride Level 106 98-107 MMOL/L Carbon Dioxide Level 24 21-32 MMOL/L Anion Gap 10 5-14 MMOL/L Blood Urea Nitrogen 11 7-18 MG/DL Creatinine 0.91 0.60-1.30 MG/DL Estimat Glomerular Filtration Rate > 60 BUN/Creatinine Ratio 12 Glucose Level 118 H 70-105 MG/DL Calcium Level 9.8 8.5-10.1 MG/DL Total Bilirubin 0.6 0.1-1.0 MG/DL Aspartate Amino Transf (AST/SGOT) 36 H 5-34 U/L Alanine Aminotransferase (ALT/SGPT) 46 0-55 U/L Alkaline Phosphatase 79 40-136 U/L Total Protein 7.9 6.4-8.2 GM/DL Albumin 4.6 H 3.2-4.5 GM/DL Thyroid Stimulating Hormone (TSH) 0.56 0.35-4.94 UIU/ML Free Thyroxine 1.11 0.70-1.48 NG/DL Serum Alcohol < 10 <10 MG/DL Urine Color YELLOW Urine Clarity CLEAR Urine pH 8 5-9 Urine Specific [place] 1.010 L 1.016-1.022 Urine Protein 1+ H NEGATIVE Urine Glucose (UA) NEGATIVE NEGATIVE Urine Ketones 1+ H NEGATIVE Urine Nitrite NEGATIVE NEGATIVE Urine Bilirubin NEGATIVE NEGATIVE Urine Urobilinogen 1 NORMAL MG/DL Urine Leukocyte Esterase 1+ H NEGATIVE Urine RBC (Auto) NEGATIVE NEGATIVE Urine RBC NONE /HPF Urine WBC RARE /HPF Urine Squamous Epithelial Cells 2-5 /HPF Urine Crystals NONE /LPF Urine Bacteria NEGATIVE /HPF Urine Casts NONE /LPF Urine Mucus NEGATIVE /LPF Urine Culture Indicated NO Urine Opiates Screen NEGATIVE NEGATIVE Urine Oxycodone Screen NEGATIVE NEGATIVE Urine Methadone Screen NEGATIVE NEGATIVE Urine Propoxyphene Screen NEGATIVE NEGATIVE Urine Barbiturates Screen NEGATIVE NEGATIVE Ur Tricyclic Antidepressants Screen NEGATIVE NEGATIVE Urine Phencyclidine Screen NEGATIVE NEGATIVE Urine Amphetamines Screen NEGATIVE NEGATIVE Urine Methamphetamines Screen NEGATIVE NEGATIVE Urine Benzodiazepines Screen NEGATIVE NEGATIVE Urine Cocaine Screen NEGATIVE NEGATIVE Urine Cannabinoids Screen POSITIVE H NEGATIVE My Orders Orders - HARRIET EUCEDA APRN Cbc With Automated Diff (01/09/18 11:07) Erythrocyte Sedimentation Rate (01/09/18 11:07) Comprehensive Metabolic Panel (01/09/18 11:07) Ua Culture If Indicated (01/09/18 11:07) Saline Lock/Iv-Start (01/09/18 11:07) Drug Screen Stat (Urine) (01/09/18 11:07) Ct Head Wo (01/09/18 11:07) Thyroid Stimulating Hormone (01/09/18 11:07) Free T4 (Free Thyroxine) (01/09/18 11:07) Ns Iv 1000 Ml (Sodium Chloride 0.9%) (01/09/18 11:15) Ketorolac Injection (Toradol Injection) (01/09/18 11:15) Alcohol (01/09/18 11:11) Lorazepam Injection (Ativan Injection) (01/09/18 11:15) Fentanyl Injection (Sublimaze Injection (01/09/18 12:00) Butalbital/Apap/Caffeine Tab (Fioricet T (01/09/18 12:30) Medications Given in ED Current Medications Medications Dose Ordered Sig/Junaid Route Start Time Stop Time Status Last Admin Dose Admin Acetaminophen/ Butalbital/ Caffeine 1 tab ONCE PRN PO 01/09/18 12:30 01/09/18 12:29 1 TAB Fentanyl Citrate 50 mcg ONCE ONCE IVP 01/09/18 12:00 01/09/18 12:01 DC 01/09/18 12:07 50 MCG Ketorolac Tromethamine 15 mg ONCE ONCE IVP 01/09/18 11:15 01/09/18 11:16 DC 01/09/18 11:21 15 MG Lorazepam 1 mg ONCE ONCE IVP 01/09/18 11:15 01/09/18 11:16 DC 01/09/18 11:21 1 MG Vital Signs/I&O 01/09/18 11:00 Temp 98.0 Pulse 77 Resp 18 B/P (MAP) 143/93 (110) Pulse Ox 98 O2 Delivery Room Air Diagonstic Imaging: CT Comments NAME: DAVION REECE [facility] REC#: [id number] PT STATUS: REG ER : 1970 PHYSICIAN: HARRIET EUCEDA APRN ADMIT DATE: 01/09/18/ER Draft Date of Exam:01/09/18 CT HEAD WO PROCEDURE: CT head without contrast. TECHNIQUE: Multiple contiguous axial images were obtained through the brain without the use of intravenous contrast. INDICATION: Visual disturbances. COMPARISON: CT head without contrast 10/01/2015. FINDINGS: No CT evidence of acute infarction. No intracranial hemorrhage, mass effect, hydrocephalus or extra-axial fluid collections. The visualized paranasal sinuses and mastoids are clear. No acute osseous findings. IMPRESSION: Negative head CT. Dictated on workstation # [id number] Dict: 01/09/18 1142 Trans: 01/09/18 1145 [id number] Interpreted by: ROB JAIME MD Electronically signed by: Departure Communication (Admissions) 1219-patient states that his headache is minimally improved after the Toradol fentanyl and Ativan. His shakiness has improved quite a bit. He does report some dizziness for the past couple days as well but the dizziness is only with movement. There is no horizontal nystagmus with Viridiana hallpike maneuver, however , states "it gets worse when I sit back up". 1323- after one Fioricet given about 45 minutes ago, he states that his headache is now gone and his vision is back to normal. Impression Primary Impression: Headache Additional Impression: Blurred vision Disposition: HOME, SELF-CARE Condition: Stable Departure-Patient Inst. Decision time for Depature: 12:22 Referrals: [facility] (PCP) Primary Care Physician JB HUANG (Family) Primary Care Physician DULCE WYNNE OD Patient Instructions: Headache, Adult (DC) Add. Discharge Instructions: 1. Call Dr Wynne (eye doctor) today for an appointment to be seen for further evaulation of your blurred vision. 2. REturn to ER for any concerns 3. Scripts Butalbital/Aspirin/Caffeine (Fiorinal 50-325-40 mg Capsule) 1 Each Capsule 1 EACH PO Q4H PRN for HEADACHE, #10 CAP Prov: HARRIET EUCEDA APRN 01/09/18 HARRIET EUCEDA APRN Jan 09, 2018 11:10
[2018-01-09] MEDS ORDERED: LORazepam INJ 2 MG/ML (ATIVAN) VIAL IVP ONE (11:15)
[2018-01-09] MEDS ORDERED: NS IV 1000 ML 1,000 ML IV SCH (11:15)
[2018-01-09] MEDS ORDERED: KETOROLAC 30 MG/ML VIAL IVP ONE (11:15)
[2018-01-09 11:24] LABS: BASOPHILS # (AUTO) 0.1 10^3/uL (0.0-0.1); BASOPHILS % (AUTO) 1 % (0-10); EOSINOPHILS # (AUTO) 0.2 10^3/uL (0.0-0.3); EOSINOPHILS % (AUTO) 3 % (0-10); HEMATOCRIT 44 % (40-54); HEMOGLOBIN 15.9 G/DL (13.3-17.7); LYMPHOCYTES # (AUTO) 1.8 X 10^3 (1.0-4.0); LYMPHOCYTES % (AUTO) 22 % (12-44); MEAN CORPUSCULAR HEMOGLOBIN 32 PG (25-34); MEAN CORPUSCULAR HGB CONC 36 G/DL (32-36); MEAN CORPUSCULAR VOLUME 89 FL (80-99); MEAN PLATELET VOLUME 9.3 FL (7.4-10.4); MONOCYTES # (AUTO) 1.1 X 10^3 (0.0-1.0); MONOCYTES % (AUTO) 13 % (0-12); NEUTROPHILS # (AUTO) 4.8 X 10^3 (1.8-7.8); NEUTROPHILS % (AUTO) 61 % (42-75); PLATELET COUNT 344 10^3/uL (130-400); RED BLOOD COUNT 4.93 10^6/uL (4.35-5.85); RED CELL DISTRIBUTION WIDTH 13.1 % (10.0-14.5); WHITE BLOOD COUNT 7.9 10^3/uL (4.3-11.0)
[2018-01-09 11:44] LABS: ALANINE AMINOTRANSFERASE 46 U/L (0-55); ALBUMIN 4.6 GM/DL (3.2-4.5); ALKALINE PHOSPHATASE 79 U/L (40-136); BILIRUBIN,TOTAL 0.6 MG/DL (0.1-1.0); BUN/CREATININE RATIO 12; CALCIUM 9.8 MG/DL (8.5-10.1); CARBON DIOXIDE 24 MMOL/L (21-32); CHLORIDE 106 MMOL/L (98-107); CREATININE SERUM 0.91 MG/DL (0.60-1.30); GFR ESTIMATED > 60; GLUCOSE 118 MG/DL (70-105); POTASSIUM 4.2 MMOL/L (3.6-5.0); SODIUM 140 MMOL/L (135-145); TOTAL PROTEIN 7.9 GM/DL (6.4-8.2)
--- NOTE | 2018-01-09 11:46 | Diagnostic Imaging Report ---
PROCEDURE: CT head without contrast. TECHNIQUE: Multiple contiguous axial images were obtained through the brain without the use of intravenous contrast. INDICATION: Visual disturbances. COMPARISON: CT head without contrast 10/01/2015. FINDINGS: No CT evidence of acute infarction. No intracranial hemorrhage, mass effect, hydrocephalus or extra-axial fluid collections. The visualized paranasal sinuses and mastoids are clear. No acute osseous findings. IMPRESSION: Negative head CT. Dictated by: Dictated on workstation # [id number]
[2018-01-09] MEDS ORDERED: fentaNYL INJECTION 100 MCG/2 ML AMP IVP ONE (12:00)
[2018-01-09 12:01] LABS: ERYTHROCYTE SEDIMENTATION RATE 7 MM/HR (0-15)
[2018-01-09 12:02] LABS: BILIRUBIN,URINE NEGATIVE (NEGATIVE); CLARITY,URINE CLEAR; COLOR,URINE YELLOW; GLUCOSE, URINE (UA) NEGATIVE (NEGATIVE); KETONES,URINE 1+ (NEGATIVE); LEUKOCYTE ESTERASE ,URINE 1+ (NEGATIVE); NITRITE,URINE NEGATIVE (NEGATIVE); PH,URINE 8 (5-9); PROTEIN,URINE 1+ (NEGATIVE); UROBILINOGEN,URINE 1 MG/DL (NORMAL)
[2018-01-09 12:05] LABS: FREE T4 (FREE THYROXINE) 1.11 NG/DL (0.70-1.48)
[2018-01-09 12:09] LABS: BACTERIA,URINE NEGATIVE /HPF; WBC,URINE RARE /HPF
[2018-01-09 12:14] LABS: AMPHETAMINE SCREEN, URINE NEGATIVE (NEGATIVE); BARBITURATE SCREEN URINE NEGATIVE (NEGATIVE); BENZODIAZEPINES SCREEN URINE NEGATIVE (NEGATIVE); CANNABINOID SCREEN, URINE POSITIVE (NEGATIVE); COCAINE SCREEN URINE NEGATIVE (NEGATIVE); METHADONE STAT NEGATIVE (NEGATIVE); METHAMPHETAMINE SCREEN URINE S NEGATIVE (NEGATIVE); OPIATE SCREEN URINE NEGATIVE (NEGATIVE); OXYCODONE STAT NEGATIVE (NEGATIVE); PROPOXYPHENE STAT NEGATIVE (NEGATIVE); TRICYCLIC ANTIDEPRESSANTS SCRE NEGATIVE (NEGATIVE)
[2018-01-09] MEDS ORDERED: ACET/BUTAL/CAFF (FIORICET) TAB PO PRN (12:30)
[2018-01-09] MEDS ORDERED: BUTA1CAP17 PO (13:24)
[2018-01-09 13:29] VITALS: BP 121/91
== END 2018-01-09 13:29 | disposition home or self-care (01) ==
LOC: EDUNIT# 10:59 → ER 11:02
DX: R51 Headache (principal); H53.8 Other visual disturbances; I25.10 Atherosclerotic heart disease of native coronary artery without angina pectoris; K21.9 Gastro-esophageal reflux disease without esophagitis; F41.9 Anxiety disorder, unspecified; F32.9 Major depressive disorder, single episode, unspecified; I10 Essential (primary) hypertension; Z80.1 Family history of malignant neoplasm of trachea, bronchus and lung; Z82.49 Family history of ischemic heart disease and other diseases of the circulatory system; Z91.5 Personal history of self-harm; Z87.442 Personal history of urinary calculi; Z88.2 Allergy status to sulfonamides; Z90.49 Acquired absence of other specified parts of digestive tract
CPT/HCPCS: 36415; 70450; 80053; 80306; 80320; 81000; 84439; 84443; 85025; 85652; 96361; 96374; 96375

== ENCOUNTER 2019-07-12 22:15 | Observation (INO) | payer SELFPAY ==
[~2019-07-12] VITALS: Ht 185 cm; Wt 111.0 kg
[~2019-07-12 22:15] MED LIST changes: +BUTA1CAP17 PO
[2019-07-12] MEDS ORDERED: TETANUS,DIPTH,PERTUSS P/F (BOOSTRIX) 0.5 ML VIAL IM ONE (22:30)
[2019-07-12] MEDS ORDERED: NS IV 1000 ML 1,000 ML IV SCH (22:30)
[2019-07-12 22:36] LABS: BASOPHILS # (AUTO) 0.1 10^3/uL (0.0-0.1); BASOPHILS % (AUTO) 1 % (0-10); EOSINOPHILS # (AUTO) 0.3 10^3/uL (0.0-0.3); EOSINOPHILS % (AUTO) 3 % (0-10); HEMATOCRIT 44 % (40-54); HEMOGLOBIN 15.7 G/DL (13.3-17.7); LYMPHOCYTES # (AUTO) 2.9 X 10^3 (1.0-4.0); LYMPHOCYTES % (AUTO) 27 % (12-44); MEAN CORPUSCULAR HEMOGLOBIN 32 PG (25-34); MEAN CORPUSCULAR HGB CONC 36 G/DL (32-36); MEAN CORPUSCULAR VOLUME 89 FL (80-99); MEAN PLATELET VOLUME 9.7 FL (7.4-10.4); MONOCYTES # (AUTO) 1.3 X 10^3 (0.0-1.0); MONOCYTES % (AUTO) 12 % (0-12); NEUTROPHILS % (AUTO) 57 % (42-75); PLATELET COUNT 301 10^3/uL (130-400); RED CELL DISTRIBUTION WIDTH 12.9 % (10.0-14.5); WHITE BLOOD COUNT 10.5 10^3/uL (4.3-11.0)
[2019-07-12 22:44] LABS: INR 0.9 (0.8-1.4); PROTHROMBIN TIME PATIENT 12.2 SEC (12.2-14.7)
[2019-07-12 22:52] LABS: ALANINE AMINOTRANSFERASE 41 U/L (0-55); ALBUMIN 4.6 GM/DL (3.2-4.5); ALKALINE PHOSPHATASE 80 U/L (40-136); BILIRUBIN,TOTAL 0.5 MG/DL (0.1-1.0); BUN/CREATININE RATIO 12; CALCIUM 9.6 MG/DL (8.5-10.1); CARBON DIOXIDE 22 MMOL/L (21-32); CHLORIDE 104 MMOL/L (98-107); CREATININE SERUM 0.99 MG/DL (0.60-1.30); GFR ESTIMATED > 60; GLUCOSE 113 MG/DL (70-105); MAGNESIUM 2.1 MG/DL (1.6-2.4); POTASSIUM 3.8 MMOL/L (3.6-5.0); SODIUM 140 MMOL/L (135-145); TOTAL PROTEIN 7.9 GM/DL (6.4-8.2)
--- NOTE | 2019-07-12 23:00 | NUR ---
Recieved report for MELLY Benton to assume care of pt @ this time.
[2019-07-12] MEDS ORDERED: AMIODARONE (OMNICELL DRIP KIT) 150 MG/3 ML IV ONE (23:39)
--- NOTE | 2019-07-12 23:40 | NUR ---
C-collar removed by Dr. Funes.
[2019-07-12] MEDS ORDERED: D5W 100 ML IVPB 100 ML IV ONE (23:44)
[2019-07-12] MEDS ORDERED: AMIODARONE FOR BOLUS 150 MG in D5W 100 ML IVPB 100 ML IV ONE (23:45)
[2019-07-12] MEDS ORDERED: AMIODARONE INJECTION 450 MG in D5W IV SOLUTION (EXCEL) 250 ML IV SCH (23:45)
[2019-07-13] VITALS (9 sets, daily range): BP systolic 93–122; BP diastolic 56–75
[2019-07-13 00:42] LABS: BASOPHILS # (AUTO) 0.1 10^3/uL (0.0-0.1); BASOPHILS % (AUTO) 1 % (0-10); EOSINOPHILS # (AUTO) 0.2 10^3/uL (0.0-0.3); EOSINOPHILS % (AUTO) 2 % (0-10); HEMATOCRIT 44 % (40-54); HEMOGLOBIN 15.4 G/DL (13.3-17.7); LYMPHOCYTES # (AUTO) 2.6 X 10^3 (1.0-4.0); LYMPHOCYTES % (AUTO) 24 % (12-44); MEAN CORPUSCULAR HEMOGLOBIN 32 PG (25-34); MEAN CORPUSCULAR HGB CONC 35 G/DL (32-36); MEAN CORPUSCULAR VOLUME 90 FL (80-99); MONOCYTES # (AUTO) 1.1 X 10^3 (0.0-1.0); MONOCYTES % (AUTO) 10 % (0-12); NEUTROPHILS # (AUTO) 6.9 X 10^3 (1.8-7.8); NEUTROPHILS % (AUTO) 63 % (42-75); PLATELET COUNT 284 10^3/uL (130-400)
[2019-07-13 00:56] LABS: ALANINE AMINOTRANSFERASE 38 U/L (0-55); ALBUMIN 4.3 GM/DL (3.2-4.5); ALKALINE PHOSPHATASE 76 U/L (40-136); BILIRUBIN,TOTAL 0.4 MG/DL (0.1-1.0); BUN/CREATININE RATIO 13; CALCIUM 9.3 MG/DL (8.5-10.1); CARBON DIOXIDE 22 MMOL/L (21-32); CHLORIDE 106 MMOL/L (98-107); CREATININE SERUM 0.95 MG/DL (0.60-1.30); GFR ESTIMATED > 60; GLUCOSE 132 MG/DL (70-105); POTASSIUM 3.8 MMOL/L (3.6-5.0); SODIUM 140 MMOL/L (135-145); TOTAL PROTEIN 7.4 GM/DL (6.4-8.2)
[2019-07-13 00:57] LABS: BILIRUBIN,URINE NEGATIVE (NEGATIVE); CLARITY,URINE CLEAR; COLOR,URINE YELLOW; GLUCOSE, URINE (UA) NEGATIVE (NEGATIVE); KETONES,URINE NEGATIVE (NEGATIVE); LEUKOCYTE ESTERASE ,URINE 1+ (NEGATIVE); NITRITE,URINE NEGATIVE (NEGATIVE); PH,URINE 7 (5-9); PROTEIN,URINE NEGATIVE (NEGATIVE)
[2019-07-13 01:11] LABS: BACTERIA,URINE NEGATIVE /HPF; SQUAMOUS EPITHELIAL CELL,UR 0-2 /HPF
[2019-07-13 01:12] LABS: AMPHETAMINE SCREEN, URINE NEGATIVE (NEGATIVE); BARBITURATE SCREEN URINE NEGATIVE (NEGATIVE); BENZODIAZEPINES SCREEN URINE NEGATIVE (NEGATIVE); CANNABINOID SCREEN, URINE POSITIVE (NEGATIVE); COCAINE SCREEN URINE NEGATIVE (NEGATIVE); METHADONE STAT NEGATIVE (NEGATIVE); METHAMPHETAMINE SCREEN URINE S NEGATIVE (NEGATIVE); OPIATE SCREEN URINE NEGATIVE (NEGATIVE); OXYCODONE STAT NEGATIVE (NEGATIVE); PROPOXYPHENE STAT NEGATIVE (NEGATIVE); TRICYCLIC ANTIDEPRESSANTS SCRE NEGATIVE (NEGATIVE)
[2019-07-13 01:16] LABS: TSH (THYROID ANALYZER) 0.99 UIU/ML (0.35-4.94)
[2019-07-13] MEDS ORDERED: NICOTINE 21 MG (NICODERM) PATCH ONE (02:54)
[2019-07-13] MEDS ORDERED: ACETAMINOPHEN 500 MG TAB (TYLENOL) PO PRN (04:00)
[2019-07-13 04:17] LABS: BASOPHILS % (AUTO) 0 % (0-10); EOSINOPHILS # (AUTO) 0.3 10^3/uL (0.0-0.3); EOSINOPHILS % (AUTO) 3 % (0-10); HEMATOCRIT 42 % (40-54); HEMOGLOBIN 14.8 G/DL (13.3-17.7); LYMPHOCYTES # (AUTO) 2.9 X 10^3 (1.0-4.0); LYMPHOCYTES % (AUTO) 29 % (12-44); MEAN CORPUSCULAR HEMOGLOBIN 32 PG (25-34); MEAN CORPUSCULAR HGB CONC 35 G/DL (32-36); MEAN CORPUSCULAR VOLUME 91 FL (80-99); MONOCYTES # (AUTO) 1.2 X 10^3 (0.0-1.0); MONOCYTES % (AUTO) 12 % (0-12); NEUTROPHILS # (AUTO) 5.7 X 10^3 (1.8-7.8); NEUTROPHILS % (AUTO) 56 % (42-75); PLATELET COUNT 282 10^3/uL (130-400); RED CELL DISTRIBUTION WIDTH 13.1 % (10.0-14.5); WHITE BLOOD COUNT 10.1 10^3/uL (4.3-11.0)
[2019-07-13 04:40] LABS: ALANINE AMINOTRANSFERASE 38 U/L (0-55); ALBUMIN 4.2 GM/DL (3.2-4.5); ALKALINE PHOSPHATASE 72 U/L (40-136); BILIRUBIN,TOTAL 0.4 MG/DL (0.1-1.0); BUN/CREATININE RATIO 12; CALCIUM 9.1 MG/DL (8.5-10.1); CARBON DIOXIDE 23 MMOL/L (21-32); CHLORIDE 108 MMOL/L (98-107); CREATININE SERUM 0.86 MG/DL (0.60-1.30); GFR ESTIMATED > 60; GLUCOSE 92 MG/DL (70-105); SODIUM 141 MMOL/L (135-145); TOTAL PROTEIN 6.9 GM/DL (6.4-8.2)
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
[2019-07-13] MEDS ORDERED: NICOTINE 21 MG (NICODERM) PATCH TD SCH (09:00)
--- NOTE | 2019-07-13 09:45 | Diagnostic Imaging Report ---
EXAMINATION: Chest 1 view HISTORY: Chest pain FINDINGS: Comparison is 06/04/2016. The lungs are clear. No edema. No pneumonia. No pleural effusion. No pneumothorax. Heart is normal in size. IMPRESSION: 1. Clear lungs. Dictated by: Dictated on workstation # [id number]
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
== END 2019-07-13 15:08 | disposition home or self-care (01) ==
LOC: EDUNIT# 22:15 → ER 22:17 → ICU 07-13 01:30
PROVIDERS: ADMIT Internal Medicine; ATTEND Internal Medicine
DX: I44.7 Left bundle-branch block, unspecified (principal); M79.10 Myalgia, unspecified site; I25.10 Atherosclerotic heart disease of native coronary artery without angina pectoris; I10 Essential (primary) hypertension; K21.9 Gastro-esophageal reflux disease without esophagitis; F17.210 Nicotine dependence, cigarettes, uncomplicated; F41.8 Other specified anxiety disorders; Z88.2 Allergy status to sulfonamides; Z90.89 Acquired absence of other organs; V89.2XXA Person injured in unspecified motor-vehicle accident, traffic, initial encounter; Z83.3 Family history of diabetes mellitus; Z80.1 Family history of malignant neoplasm of trachea, bronchus and lung; Z82.49 Family history of ischemic heart disease and other diseases of the circulatory system
CPT/HCPCS: 36415; 70450; 71045; 72125; 72128; 72131; 80053; 80306; 80320; 81000; 83735; 83874; 83880; 84443; 84484; 85025; 85610; 85730; 90715; 93005; 93041

== ENCOUNTER 2020-04-04 13:27 | Emergency (ER) | payer SELFPAY ==
[~2020-04-04] VITALS: Ht 182.9 cm; Wt 115.9 kg
[2020-04-04 13:38] VITALS: BP 126/81
[2020-04-04] MEDS ORDERED: TETANUS,DIPTH,PERTUSS P/F (BOOSTRIX) 0.5 ML VIAL IM ONE (13:45)
[2020-04-04] MEDS ORDERED: LIDOCAINE 2% VISCOUS 15 ML UDC MM ONE (13:45)
[2020-04-04] MEDS ORDERED: HYDROcodone/APAP 5 MG/325 MG (LORTAB) TAB PO ONE (13:45)
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
[2020-04-04] MEDS ORDERED: HYDR-3870 PO (14:16)
== END 2020-04-04 14:30 | disposition home or self-care (01) ==
LOC: EDUNIT# 13:27 → ER 13:28
DX: T23.032A Burn of unspecified degree of multiple left fingers (nail), not including thumb, initial encounter (principal); G89.29 Other chronic pain; M54.9 Dorsalgia, unspecified; F41.9 Anxiety disorder, unspecified; Z88.2 Allergy status to sulfonamides; Z79.82 Long term (current) use of aspirin; Z82.49 Family history of ischemic heart disease and other diseases of the circulatory system; Z80.1 Family history of malignant neoplasm of trachea, bronchus and lung; Z95.9 Presence of cardiac and vascular implant and graft, unspecified; X08.8XXA Exposure to other specified smoke, fire and flames, initial encounter
CPT/HCPCS: 90715; 99284